=== PATIENT | male | born 1960 | race African-American/Black ===

== ENCOUNTER 2022-09-06 08:43 | Day surgery (SDC) | payer OTHER ==
[2022-07-18 14:30] VITALS: BMI 37.3
[2022-09-06] MEDS ORDERED: TRANEXAMIC ACID 1000 MG/10 ML VIAL IVPUSH ONE (10:03)
[2022-09-06] MEDS ORDERED: CEFAZOLIN 2 GM in DEXTROSE 5%-WATER - 50 ML IVPB ONE (10:03)
[2022-09-06] MEDS ORDERED: CELECOXIB 200 MG CAPSULE PO ONE ×2 (10:15→11:00)
[2022-09-06] MEDS ORDERED: VANCOMYCIN 1,000 MG VIAL (RESTRICTED TO ID ONLY) ONE (10:45)
[2022-09-06] MEDS ORDERED: ceFAZolin SODIUM 1 GM VIAL ONE ×2 (10:45→11:06)
[2022-09-06] MEDS ORDERED: BUPIVACAINE LIPOSOME/PF (EXPAREL) 266 MG/20 ML VIAL ONE (10:46)
[2022-09-06] MEDS ORDERED: BUPIVACAINE HCL/PF 0.5% (5MG/ML) 10 ML VIAL ONE (10:47)
[2022-09-06] MEDS ORDERED: MIDAZOLAM HCL 2 MG/2 ML SINGLE DOSE VIAL ONE (10:47)
[2022-09-06] MEDS ORDERED: GABAPENTIN 300 MG CAPSULE PO ONE (11:00)
[2022-09-06] MEDS ORDERED: PROPOFOL 60 ML ONE (11:07)
[2022-09-06] MEDS ORDERED: ONDANSETRON 4 MG/2 ML VIAL IVPUSH PRN (11:28)
[2022-09-06] MEDS ORDERED: LACTATED RINGERS SOLUTION 1,000 ML IV SCH ×2 (11:30→14:45)
[2022-09-06] MEDS ORDERED: PHENYLEPHRINE HCL 10 MG/1 ML SINGLE DOSE VIAL ONE (12:20)
[2022-09-06] MEDS ORDERED: DEXAMETHASONE SOD PHOSPHATE 4 MG/1 ML VIAL ONE (13:35)
[2022-09-06] MEDS ORDERED: oxyCODONE HCL 5 MG TABLET PO PRN ×2 (14:33)
[2022-09-06] MEDS ORDERED: ACETAMINOPHEN 1000 MG/100 ML BAG IVPB ONE (14:33)
[2022-09-06] MEDS: KETOROLAC TROMETHAMINE 30 MG/1 ML VIAL IVPUSH SCH ×2 (16:41→22:06)
[2022-09-06] MEDS: metFORMIN HCL 500 MG TABLET (FP) PO SCH (16:42)
[2022-09-06] MEDS: INSULIN SLIDING SCALE (NOVOLOG) 1 VIAL SQ SCH ×2 (16:43→22:14)
[2022-09-06] MEDS ORDERED: ATORVASTATIN CA 20 MG TABLET (FP) PO SCH (22:00)
[2022-09-06] MEDS: CEFAZOLIN SODIUM 2 GM in DEXTROSE 5%-WATER 100 ML IVPB SCH (22:06)
[2022-09-06] MEDS: SENNOSIDES/DOCUSATE COMBO (SENNA PLUS) TABLET (UD) PO SCH (22:07)
[2022-09-06] MEDS: oxyCODONE HCL 10 MG SUSTAINED ACTING TABLET PO SCH (22:08)
[2022-09-06] MEDS: ACETAMINOPHEN 500 MG TABLET (FP) PO SCH (22:08)
[2022-09-06 22:53] VITALS: RESP 18
[2022-09-07] MEDS: CEFAZOLIN SODIUM 2 GM in DEXTROSE 5%-WATER 100 ML IVPB SCH (04:30)
[2022-09-07] MEDS: metFORMIN HCL 500 MG TABLET (FP) PO SCH ×2 (05:55→08:50)
[2022-09-07] MEDS: INSULIN SLIDING SCALE (NOVOLOG) 1 VIAL SQ SCH ×2 (05:59→14:45)
[2022-09-07] MEDS: sitaGLIPtin PHOSPHATE 50 MG TABLET PO SCH ×3 (06:00→08:50)
[2022-09-07 06:15] VITALS: BP 135/86; PULSE 77; TEMP 97.9
[2022-09-07] MEDS: ACETAMINOPHEN 500 MG TABLET (FP) PO SCH ×3 (06:57→15:20)
[2022-09-07] MEDS ORDERED: ASPIRIN 325 MG TABLET PO SCH (08:00)
[2022-09-07 08:17] LABS: HEMATOCRIT 33.6 % (35.4-49); HEMOGLOBIN 11.3 G/dL (11.7-16.9); MCH 29.4 pg (25.7-33.7); MCHC 33.6 g/dl (32.0-35.9); MEAN CELL VOLUME 87.3 fl (80-96); MEAN PLT VOLUME 7.3 fl (7.5-11.1); PLATELET COUNT 324.6 10^3/uL (134-434); RBC 3.85 10^6/uL (4.00-5.60); RDW 16.1 % (11.9-15.9); WHITE BLOOD COUNT 7.8 10^3/uL (4.0-10.8)
[2022-09-07] MEDS: SENNOSIDES/DOCUSATE COMBO (SENNA PLUS) TABLET (UD) PO SCH ×2 (08:43→10:04)
[2022-09-07] MEDS: MULTIVITAMINS (DAILY MVI) TABLET (FP) PO SCH ×2 (08:44→10:05)
[2022-09-07] MEDS: oxyCODONE HCL 10 MG SUSTAINED ACTING TABLET PO SCH ×2 (08:44→10:03)
[2022-09-07] MEDS: PANTOPRAZOLE 40 MG TABLET PO SCH ×2 (08:44→10:05)
[2022-09-07] MEDS: LOSARTAN POTASSIUM 50 MG TABLET PO SCH ×2 (08:44→10:04)
[2022-09-07] MEDS: HYDROCHLOROTHIAZIDE 25 MG TABLET (FP) PO SCH ×2 (08:45→10:04)
== END 2022-09-07 16:50 | disposition home health service (06) ==
LOC: FASUSAT 08:43 → FM/S 16:15 → FASUSAT 09-07 16:50
PROVIDERS: ATTEND Orthopaedic Surgery
PROC: 8E0Y0CZ Robotic Assisted Procedure of Lower Extremity, Open Approach (ICD-10-PCS; 2022-09-06)
PROC: 0SRD0J9 Replacement of Left Knee Joint with Synthetic Substitute, Cemented, Open Approach (ICD-10-PCS; principal; 2022-09-06 12:14)
DX: M17.12 Unilateral primary osteoarthritis, left knee (principal)
CPT/HCPCS: 20985; 27447; C1776; 36415; 73560-TC-LT-FY; 82962; 85027; 94760; 97116-GP; 97161-GP; C1713; C1889